=== PATIENT | male | born 1955 | race Caucasian/White ===

== ENCOUNTER 2021-04-01 13:55 | Inpatient (IN) | payer MEDICARE, OTHER ==
[~2021-04-01] VITALS: Ht 165.1 cm; Wt 74.4 kg
--- NOTE | 2021-04-01 14:15 | NUR ---
Pt brought in from [facility] for depression and involuntary admission to a psychiatric facility, noted to be calm and cooperative, A/O to self. Belongings taken from patient and noted on inventory list.
--- NOTE | 2021-04-01 14:16 | NUR ---
Dr. Daly at [facility] for [facility].
--- NOTE | 2021-04-01 15:00 | NUR ---
Patient is resting comfortably in bed with eyes closed
[2021-04-01 15:01] LABS: *BILIRUBIN,URIN NEGATIVE (NEGATIVE); *BLOOD, URINE NEGATIVE (NEGATIVE); *COLOR,URINE YELLOW (YELLOW); *KETONES,URINE NEGATIVE (NEGATIVE); *UROBILINOGEN,URINE 0.2 E.U./dl (NORMAL); LEUKOCYTE ESTERASE ,URINE TRACE (NEGATIVE); NITRITE, URINE NEGATIVE (NEGATIVE); PH,URINE 5.5 (5.0-8.0); UGLUCOSE NEGATIVE (NEGATIVE)
[2021-04-01 15:14] LABS: *CLARITY,URINE SLIGHTLY HAZY (CLEAR)
[2021-04-01 15:14] LABS: BASOPHILS # (AUTO) 0.1 K/uL (0.0-8.0); EOSINOPHILS # (AUTO) 0.2 K/uL (0.0-0.7); EOSINOPHILS % (AUTO) 1.9 % (0.0-7.0); HEMOGLOBIN 12.2 g/dL (12.5-16.3); MEAN CORPUSCULAR HEMOGLOBIN 29.6 uug (23.8-33.4); MEAN CORPUSCULAR HGB CONC 34 g/dL (32.5-36.3); MEAN CORPUSCULAR VOLUME 87.6 fL (73.0-96.2); MONOCYTES # (AUTO) 0.5 K/uL (2.0-10.0); NEUTROPHILS # (AUTO) 5.5 K/uL (1.8-8.9); NEUTROPHILS % (AUTO) 67.1 % (38.5-71.5); PLATELET COUNT (AUTO) 210 K/uL (152-348); RED BLOOD CELL COUNT(AUTO) 4.11 MIL/uL (4.06-5.63); WHITE BLOOD COUNT (AUTO) 8.2 K/uL (3.6-10.2)
[2021-04-01 15:15] LABS: RBC,URINE 0-3 /HPF (0-3)
[2021-04-01 15:16] LABS: BACTERIA,URINE FEW /HPF (NONE SEEN); SQUAMOUS EPITHELIAL CELL,UR FEW /HPF (NONE SEEN)
[2021-04-01 15:19] LABS: CARBON DIOXIDE 24 mmol/L (21-32); CHLORIDE 108 mmol/L (98-107); CREATININE 0.8 mg/dL (0.6-1.3); GLUCOSE 82 mg/dL (74-106); POTASSIUM 3.3 mmol/L (3.5-5.1); UREA NITROGEN, BLOOD 22 mg/dL (7-18)
[2021-04-01 15:24] LABS: ETHANOL < 3 MG/DL (0-0)
[2021-04-01 15:25] LABS: ALANINE AMINOTRANSFERASE 46 U/L (16-63); ALKALINE PHOSPHATASE 68 U/L (50-136); ASPARTATE AMINOTRANSFERASE 69 U/L (15-37); BILIRUBIN,DIRECT 0.1 mg/dL (0.0-0.2); BILIRUBIN,TOTAL 0.2 mg/dL (0.2-1.0); TOTAL PROTEIN, SERUM 7.1 g/dL (6.4-8.2)
[2021-04-01 15:31] LABS: ACETAMINOPHEN < 2.0 ug/mL (10-30)
[2021-04-01 15:32] LABS: THYROID STIMULATING HORMONE 2.679 mIU/mL (0.358-3.740)
[2021-04-01 15:32] LABS: *AMPHETAMINE, URINE NEGATIVE (NEGATIVE); *CANNABINOID, URINE NEGATIVE (NEGATIVE); *COCCAINE, URINE NEGATIVE (NEGATIVE); *OPIATE, URINE NEGATIVE (NEGATIVE); *PHENCYCLIDINE SCREEN,URINE NEGATIVE (NEGATIVE)
[2021-04-01] MEDS ORDERED: POTASSIUM BICARBONATE/CIT AC 25 MEQ TABLET.EFF PO ONE (15:45)
--- NOTE | 2021-04-01 16:00 | NUR ---
PATIENT WAS MEDICALLY CLEARED BY DR JOSEPH.
[2021-04-01] MEDS ORDERED: POTASSIUM BICARBONATE/CIT AC 25 MEQ TABLET.EFF ONE (16:02)
--- NOTE | 2021-04-01 17:00 | NUR ---
Patient is resting comfortably in bed with eyes closed
--- NOTE | 2021-04-01 17:30 | NUR ---
GPS: Nursing Notes: Admission Note: Patient admitted to [facility] on 5150 GD due to psychotic behavior, s/p fall, not making sense when answering questions, unable to verbalize plan for self care, during face to face assessment, patient is A/Ox1, confused, poor insight, impaired judgment, talking incoherently when questioned by staff, but cooperative with nursing care, allowed staff to shower him, unable to formulate a viable plan for self care, needs supervision with ambulation due s/p fall, continue to monitor for safety.
[2021-04-01] MEDS ORDERED: MAGNESIUM HYDROXIDE 30 ML LIQUID UDC PO PRN (18:15)
[2021-04-01] MEDS ORDERED: LORAZEPAM 0.5 MG TABLET PO PRN ×2 (18:15→22:15)
[2021-04-01] MEDS ORDERED: MAG HYDROX/AL HYDROX/SIMETH 30 ML LIQUID UDC PO PRN (18:15)
[2021-04-01] MEDS ORDERED: ACETAMINOPHEN 325 MG TABLET PO PRN (18:15)
[2021-04-01 18:57] VITALS: BP 106/60
[2021-04-01 20:00] VITALS: BP 120/63
[2021-04-01] MEDS: SULFAMETH/TRIMETH 800/160 MG TABLET PO SCH (23:42)
--- NOTE | 2021-04-02 01:36 | NUR ---
RECEIVED PATIENT IN A MICHA CHAIR IN THE HALLWAY. APPEARS CONFUSED, RAMBLING AND AT ONE POINT ATTEMPTED TO GET OUT OF THE CHAIR. HE SAID " AM GOING TO SPACE".HE HAS POOR INSIGHT AND IMPAIRED JUDGEMENT. IT WAS THE ONLY COHERENT AND CLEAR SENTENCE OUT OF HIM.HE IS HOWEVER COMPLIANT WITH HIS MEDICATIONS. SAME GIVEN AND PATIENT NOW SLEEPING. FREQUENT VISUAL CHECKS MADE ON HIM FOR SAFETY.WILL CONTINUE TO MONITOR.
--- NOTE | 2021-04-02 06:50 | NUR ---
SLEPT FOR 6;45 HOURS.
[2021-04-02 07:30] VITALS: BP 103/73
[2021-04-02 08:10] LABS: BILIRUBIN,TOTAL 0.3 mg/dL (0.2-1.0); CREATININE 0.8 mg/dL (0.6-1.3); POTASSIUM 3.6 mmol/L (3.5-5.1); TOTAL PROTEIN, SERUM 7.3 g/dL (6.4-8.2)
[2021-04-02] MEDS: SULFAMETH/TRIMETH 800/160 MG TABLET PO SCH ×2 (08:45→20:05)
[2021-04-02] MEDS: NICOTINE 14 MG/24HR PATCH TD SCH (08:45)
--- NOTE | 2021-04-02 09:49 | NUR ---
SW Initial Discharge Note: Patient appears to be homeless and will require a SNF placement or Nursing Home. Patient does not have any next of kin or family support. SW will continue to work with patient and MD to ensure a safe and proper discharge plan.
--- NOTE | 2021-04-02 09:49 | NUR ---
Firearms Report: Political Scientist completed and submitted a [employer] firearms report for 5150 grave disability certifications. A copy of report has been placed in patient chart.
--- NOTE | 2021-04-02 10:24 | NUR ---
WOUND CARE CONSULT: PT PRESENTS WITH DRY ABRASIONS TO BILATERAL KNEES, CRUSTED WOUND TO RT ELBOW AND OPEN WOUND TO LEFT TOP OF EAR, ALL PRESENT ON ADMISSION. RECOMMEND SURGICAL CONSULT. DR FARNAZ LEYVA NOTIFIED OF CONSULT REQUEST. RECOMMENDATIONS MADE FOR SKIN PROTECTION AND WOUND CARE. DISCUSSED WITH NURSING STAFF. PT IS AMBULATORY AND CONTINENT. MD IN AGREEMENT WITH PLAN OF CARE. Addendum: 04/03/21 at 0838 by HOMER FERRER RN CORRECTION TO ABOVE NOTE: SHOULD READ CRUSTED LEFT ELBOW WOUND.
[2021-04-02] MEDS ORDERED: LORAZEPAM 1 MG TABLET PO PRN (10:45)
[2021-04-02] MEDS: risperiDONE 0.5 MG TABLET PO SCH ×3 (11:42→16:25)
[2021-04-02] MEDS: BACITRACIN/POLYMYXIN B OINT 15 GM TUBE TOP SCH (11:43)
[2021-04-02 15:27] VITALS: BP 114/64
[2021-04-02] MEDS: BENZTROPINE MESYLATE 0.5 MG TABLET PO SCH (16:25)
[2021-04-02 16:39] LABS: BILIRUBIN,DIRECT 0.1 mg/dL (0.0-0.2); BILIRUBIN,TOTAL 0.4 mg/dL (0.2-1.0); TOTAL PROTEIN, SERUM 7.5 g/dL (6.4-8.2)
[2021-04-02 20:21] VITALS: BP 116/62
[2021-04-02] MEDS ORDERED: risperiDONE 0.5 MG TABLET PO SCH (21:00)
[2021-04-02] MEDS: TEMAZEPAM 7.5 MG CAPSULE PO PRN (23:21)
--- NOTE | 2021-04-03 05:59 | NUR ---
GPS: Pt.slept for 6.30 last night. Remains confused,non-sensical but re-directable. Fall precautions observed. Wound care to left elbow done as ordered. Needs attended. No adverse reactions noted from atb therapy for uti. Fluids semaj.well.
--- NOTE | 2021-04-03 07:00 | NUR ---
Patient report received from shift nurse manager. Patient resting in bed. Alert and oriented x 1 to person. No reports of pain or shortness of breath at this time. Patient has abrasions on the knees and elbow, as well as the left ear. Patient is calm and cooperative. Bed in low and locked position. Safety precautions in place. Will continue to monitor.
[2021-04-03 07:30] VITALS: BP 133/70
[2021-04-03] MEDS: BENZTROPINE MESYLATE 0.5 MG TABLET PO SCH ×2 (09:43→16:58)
[2021-04-03] MEDS: risperiDONE 0.5 MG TABLET PO SCH ×3 (09:43→16:58)
[2021-04-03] MEDS: SULFAMETH/TRIMETH 800/160 MG TABLET PO SCH ×2 (09:43→20:04)
[2021-04-03] MEDS: BACITRACIN/POLYMYXIN B OINT 15 GM TUBE TOP SCH (09:43)
[2021-04-03] MEDS: NICOTINE 14 MG/24HR PATCH TD SCH (09:43)
[2021-04-03 16:47] VITALS: BP 114/72
--- NOTE | 2021-04-03 17:50 | NUR ---
Patient was less anxious throughout the day. She has been compliant with her medications. Calm and cooperative. Patient is now on voluntary status. Denies SI and HI at this time. Patient interactive with group. No reports of pain or shortness of breath at this time. Pt remains confused. Addendum: 04/03/21 at 1756 by IQRA HADDAD RN Charted on wrong patient. please ignore.
--- NOTE | 2021-04-03 17:57 | NUR ---
Patient calm and cooperative throughout the day. Compliant with medications. Patient is now on a 14 day hold. Interactive with group. Wound care provided for abrasions on the knees and elbow. Alert and oriented x [address]. No reports of suicidal ideations or homicidal ideations. Patient endorses auditory hallucinations. Stated the voices told him that "Everything will be okay."
[2021-04-03] MEDS: risperiDONE 1 MG TABLET PO SCH (20:04)
[2021-04-03 20:29] VITALS: BP 112/57
[2021-04-03] MEDS ORDERED: risperiDONE 0.5 MG TABLET PO SCH (21:00)
[2021-04-03] MEDS: TEMAZEPAM 7.5 MG CAPSULE PO PRN (21:57)
--- NOTE | 2021-04-04 06:42 | NUR ---
GPS: Pt.slept for 6.30 last night. Currently in the TV room watching tv. Remains confused but listens to re-direction. Safe environment provided. Will continue to monitor.
[2021-04-04 07:30] VITALS: BP 127/56
[2021-04-04] MEDS: BENZTROPINE MESYLATE 0.5 MG TABLET PO SCH ×2 (08:46→16:22)
[2021-04-04] MEDS: SULFAMETH/TRIMETH 800/160 MG TABLET PO SCH ×2 (08:46→20:09)
[2021-04-04] MEDS: risperiDONE 0.5 MG TABLET PO SCH ×3 (08:46→16:22)
[2021-04-04] MEDS: NICOTINE 14 MG/24HR PATCH TD SCH (08:47)
[2021-04-04] MEDS: BACITRACIN/POLYMYXIN B OINT 15 GM TUBE TOP SCH (08:47)
--- NOTE | 2021-04-04 09:56 | NUR ---
[facility] SN[facility] Referral: M[facility] faxed patient's referral packet to [facility] attention to Shahrzad ([phone]) and [facility] attention to Annie ([phone]) for review and possible placement. Addendum: 04/05/21 at 1000 by BORIS BROWN Patient is accepted at [facility] for placement.
[2021-04-04 17:10] VITALS: BP 104/50
[2021-04-04 20:01] VITALS: BP 128/65
[2021-04-04] MEDS: risperiDONE 1 MG TABLET PO SCH (20:09)
[2021-04-04] MEDS: TEMAZEPAM 7.5 MG CAPSULE PO PRN (22:28)
--- NOTE | 2021-04-05 06:41 | NUR ---
GPS: Currently in the dining room area watching TV. Slept 5.30 last night. Remains confused,disorganized and non-sensical. Listens to re-direction from staff. Safe environment provided. Fluids encouraged. No adverse reactions noted from atb.
[2021-04-05 07:30] VITALS: BP 123/77
[2021-04-05] MEDS: risperiDONE 0.5 MG TABLET PO SCH ×3 (08:33→16:03)
[2021-04-05] MEDS: NICOTINE 14 MG/24HR PATCH TD SCH (08:33)
[2021-04-05] MEDS: BENZTROPINE MESYLATE 0.5 MG TABLET PO SCH ×2 (08:33→16:02)
[2021-04-05] MEDS: SULFAMETH/TRIMETH 800/160 MG TABLET PO SCH ×2 (08:33→20:05)
[2021-04-05] MEDS: BACITRACIN/POLYMYXIN B OINT 15 GM TUBE TOP SCH (08:34)
--- NOTE | 2021-04-05 11:35 | NUR ---
[facility] Hearing: Patient had 5250 probable cause hearing today and it was upheld for grave disability.
[2021-04-05 16:08] VITALS: BP 118/67
--- NOTE | 2021-04-05 18:12 | NUR ---
received patient AOx1-2, patient appears disorganized, responding to internal stimuli, acting bizarrely pre occupied on doing artworks , patient on monitoring [id number] for safety, been compliant with medication, milieu therapy and care, assisted with his ADL, denies SI and HI, denies AH/VH at this time, no sign of distress
[2021-04-05 20:05] VITALS: BP 126/55
[2021-04-05] MEDS: risperiDONE 1 MG TABLET PO SCH (20:05)
[2021-04-05] MEDS: TEMAZEPAM 7.5 MG CAPSULE PO PRN (23:28)
--- NOTE | 2021-04-06 05:37 | NUR ---
Patient spent most of the evening in the day room , sitting with his peers but not interacting. His speech is unintelligible and garbled. This brief writer tried many times to figure out what the patient was saying. The few times his speech was clear, the patient was speaking nonsensical and delusional. Also noted ,that this patient is calm and does not show any type of behavioral issues. Sleep hours were 5.00 last night. A sleeping pill was provided. Continuing to asses for the patients needs, and monitor for safety.
[2021-04-06] MEDS: risperiDONE 0.5 MG TABLET PO SCH ×2 (08:02→16:00)
[2021-04-06] MEDS: NICOTINE 14 MG/24HR PATCH TD SCH (08:02)
[2021-04-06] MEDS: BACITRACIN/POLYMYXIN B OINT 15 GM TUBE TOP SCH (08:02)
[2021-04-06] MEDS: BENZTROPINE MESYLATE 0.5 MG TABLET PO SCH ×2 (08:02→16:00)
[2021-04-06 08:27] VITALS: BP 119/65
[2021-04-06 16:13] VITALS: BP 101/60
[2021-04-06 20:00] VITALS: BP 130/52
[2021-04-06] MEDS: risperiDONE 1 MG TABLET PO SCH (20:07)
[2021-04-07 07:30] VITALS: BP 121/69
[2021-04-07] MEDS: risperiDONE 0.5 MG TABLET PO SCH ×2 (08:38→16:32)
[2021-04-07] MEDS: NICOTINE 14 MG/24HR PATCH TD SCH (08:38)
[2021-04-07] MEDS: BENZTROPINE MESYLATE 0.5 MG TABLET PO SCH ×2 (08:39→16:32)
[2021-04-07] MEDS: BACITRACIN/POLYMYXIN B OINT 15 GM TUBE TOP SCH (08:39)
[2021-04-07] MEDS ORDERED: PNEUMOCOCCAL 23-VAL P-SAC VAC 0.5 ML VIAL IM ONE (14:30)
[2021-04-07 16:00] VITALS: BP 112/66
[2021-04-07 20:00] VITALS: BP 116/69
[2021-04-07] MEDS: risperiDONE 1 MG TABLET PO SCH (20:24)
[2021-04-07] MEDS: TEMAZEPAM 7.5 MG CAPSULE PO PRN (22:09)
--- NOTE | 2021-04-08 04:47 | NUR ---
Patient was seen masturbating in the day room last night in front of a couple other patients. This life insurance underwriter redirected patient to his room. This patient was easily redirectable, and stopped right away. It is very hard to communicate anything meaningful with the patient, due to his garbled, rambling, delusional communication abilities. There were no more incidences of exhibitionism during the night after that. Staff is monitoring patient closely for hypersexual behaviors. For the most part this patient is calm and cooperative.
[2021-04-08 07:30] VITALS: BP 118/67
[2021-04-08] MEDS: risperiDONE 0.5 MG TABLET PO SCH ×2 (08:39→17:55)
[2021-04-08] MEDS: NICOTINE 14 MG/24HR PATCH TD SCH (08:39)
[2021-04-08] MEDS: BENZTROPINE MESYLATE 0.5 MG TABLET PO SCH (08:39)
[2021-04-08] MEDS: BACITRACIN/POLYMYXIN B OINT 15 GM TUBE TOP SCH (08:40)
[2021-04-08 11:43] LABS: BASOPHILS # (AUTO) 0.1 K/uL (0.0-8.0); BASOPHILS % (AUTO) 0.8 % (0.0-2.0); EOSINOPHILS # (AUTO) 0.2 K/uL (0.0-0.7); EOSINOPHILS % (AUTO) 2.4 % (0.0-7.0); HEMATOCRIT 35.8 % (36.7-47.1); HEMOGLOBIN 12.2 g/dL (12.5-16.3); LYMPHOCYTES # (AUTO) 1.6 K/uL (20.0-40.0); LYMPHOCYTES % (AUTO) 22.4 % (20.5-51.5); MEAN CORPUSCULAR HEMOGLOBIN 29.7 uug (23.8-33.4); MEAN CORPUSCULAR HGB CONC 34 g/dL (32.5-36.3); MEAN CORPUSCULAR VOLUME 87.4 fL (73.0-96.2); MONOCYTES # (AUTO) 0.6 K/uL (2.0-10.0); MONOCYTES % (AUTO) 7.6 % (0.0-11.0); NEUTROPHILS # (AUTO) 4.9 K/uL (1.8-8.9); NEUTROPHILS % (AUTO) 66.8 % (38.5-71.5); PLATELET COUNT (AUTO) 210 K/uL (152-348); WHITE BLOOD COUNT (AUTO) 7.3 K/uL (3.6-10.2)
[2021-04-08 11:55] LABS: BILIRUBIN,TOTAL 0.2 mg/dL (0.2-1.0); CREATININE 0.9 mg/dL (0.6-1.3); POTASSIUM 3.8 mmol/L (3.5-5.1)
[2021-04-08 15:28] VITALS: BP 118/58
[2021-04-08] MEDS ORDERED: BENZTROPINE MESYLATE 0.5 MG TABLET PO SCH (17:00)
[2021-04-08] MEDS: BENZTROPINE MESYLATE 1 MG TABLET PO SCH (17:55)
[2021-04-08] MEDS: risperiDONE 2 MG TABLET PO SCH (20:03)
[2021-04-08 20:32] VITALS: BP 116/56
[2021-04-08] MEDS ORDERED: risperiDONE 1 MG TABLET PO SCH (21:00)
[2021-04-09 07:30] VITALS: BP 107/70
[2021-04-09] MEDS: NICOTINE 14 MG/24HR PATCH TD SCH (08:53)
[2021-04-09] MEDS: BENZTROPINE MESYLATE 1 MG TABLET PO SCH ×3 (08:53→20:00)
[2021-04-09] MEDS: risperiDONE 0.5 MG TABLET PO SCH ×2 (08:53→17:18)
[2021-04-09] MEDS: BACITRACIN/POLYMYXIN B OINT 15 GM TUBE TOP SCH (08:54)
[2021-04-09 15:04] VITALS: BP 107/58
[2021-04-09 20:15] VITALS: BP 130/63
[2021-04-09] MEDS: risperiDONE 2 MG TABLET PO SCH (20:31)
--- NOTE | 2021-04-09 23:42 | NUR ---
RECEIVED PATIENT IN THE ACTIVITY ROOM.NOTED CONFUSED,FURIOUSLY COLORING A PAINTING AND WOULD NOT RAISE HIS HEAD TILL HE WAS READY TO ENGAGE.HE IS DISORGANIZED, SPEECH GABLED AND UNINTELLIGIBLE AND HE IS DISORIENTED WITH POOR JUDGEMENT AND INSIGHT. HE IS COMPLIANT WITH MEDICATION. HE DID NOT DISPLAY ANY HYPER SEXUAL ACTIVITY AT THIS TIME. CHECKS MADE ON HIM FOR SAFETY. WILL CONTINUE TO MONITOR.
--- NOTE | 2021-04-10 06:29 | NUR ---
SLEPT FOR 7:15 HOURS.
[2021-04-10 07:30] VITALS: BP 111/68
[2021-04-10] MEDS: BACITRACIN/POLYMYXIN B OINT 15 GM TUBE TOP SCH (08:42)
[2021-04-10] MEDS: NICOTINE 14 MG/24HR PATCH TD SCH (08:42)
[2021-04-10] MEDS: risperiDONE 0.5 MG TABLET PO SCH ×2 (08:42→16:59)
[2021-04-10] MEDS: BENZTROPINE MESYLATE 1 MG TABLET PO SCH ×3 (08:43→16:59)
[2021-04-10 16:02] VITALS: BP_SYST 111; BP_SYST 119; BP_DIAS 35; BP_DIAS 70
[2021-04-10 20:00] VITALS: BP 114/61
[2021-04-10] MEDS: risperiDONE 2 MG TABLET PO SCH (20:06)
--- NOTE | 2021-04-10 21:50 | NUR ---
Received patient in his room, isolative, preoccupied writing something on a piece of behavior. med compliant, bizzare, poor insight and poor judgment. Patient will remain in a psych facility for further evaluation and treatment.
[2021-04-11] MEDS: TEMAZEPAM 7.5 MG CAPSULE PO PRN ×2 (00:42→20:03)
[2021-04-11 07:30] VITALS: BP 142/67
[2021-04-11] MEDS: BENZTROPINE MESYLATE 1 MG TABLET PO SCH ×3 (08:44→17:56)
[2021-04-11] MEDS: NICOTINE 14 MG/24HR PATCH TD SCH (08:45)
[2021-04-11] MEDS ORDERED: risperiDONE 1 MG TABLET PO SCH (09:00)
[2021-04-11] MEDS ORDERED: risperiDONE 0.5 MG TABLET PO SCH (09:00)
[2021-04-11] MEDS: BACITRACIN/POLYMYXIN B OINT 15 GM TUBE TOP SCH (12:43)
[2021-04-11 16:00] VITALS: BP 138/73
--- NOTE | 2021-04-11 17:00 | NUR ---
Gps/Terrazzo Tile Setter- Wanders around, redirectable, compliant with his routine am meds, needed prompting and verbal cueing in doing his tasks, mumbles , encouraged to talk louder. Patient likes to write , kept scribbling . Needed assist with am care and hygiene
[2021-04-11] MEDS: risperiDONE 1 MG TABLET PO SCH (17:56)
[2021-04-11 20:01] VITALS: BP 119/63
[2021-04-11] MEDS: risperiDONE 2 MG TABLET PO SCH (20:03)
[2021-04-12 07:30] VITALS: BP 150/59
[2021-04-12] MEDS: risperiDONE 1 MG TABLET PO SCH (08:22)
[2021-04-12] MEDS: BACITRACIN/POLYMYXIN B OINT 15 GM TUBE TOP SCH (08:22)
[2021-04-12] MEDS: NICOTINE 14 MG/24HR PATCH TD SCH (08:22)
[2021-04-12] MEDS: BENZTROPINE MESYLATE 1 MG TABLET PO SCH ×2 (08:22→12:33)
--- NOTE | 2021-04-12 08:40 | NUR ---
SW Discharge Note: Patient [facility] be [facility] [address] [facility] [address] ([phone]). Patient will be provided with ambulance transportation today at 1:00pm. Spoke with vincent Valencia at the facility and Chinedu, shutdown coordinator who stated they are ready to accept the patient today. Patient is aware and agreeable with discharge plans and presents with appropriate mood and congruent affect. Patient is alert and oriented x3, is unable to plan for self-care, however, is willing to received care provided for him at [facility]. Patient denies any suicidal or homicidal ideation. Patient will follow-up at the facility with Psychiatrist Dr. Mckenzie and Chimney Builder Helper Dr. Montes De Oca. Patient does not have any supportive contacts at this time. Patient signed the homeless waiver upon discharge and a copy was placed in the chart. Homeless resources were provided and include [address] information line for shelters and homeless resources. A copy of all resources given to patient was also placed in the chart.
--- NOTE | 2021-04-12 10:19 | NUR ---
Gps/Executive Vice President- Called [facility], report was given to [employer] Chemist , estimated time of turkey picker by ambulance at 1200.
--- NOTE | 2021-04-12 12:00 | NUR ---
Gps/Supervisor Drilling And Shooting- Granulation to left knee abrassion, (Scabs) , left elbow and left ear , sites cleansed with NS bacitracin ana maria. applied., left elbow w/ boarder dressing left knee and left ear BRICK WHEELER.
--- NOTE | 2021-04-12 12:57 | NUR ---
Gps/Accounting Practice Manager- Discharged to [facility] via ambulance., in good spirit, no complaints noted, all belongings given back to patient. In no sign of any distress.
== END 2021-04-12 13:00 | DRG 876 ==
LOC: ER 13:55 → GPS 17:12
PROVIDERS: ADMIT Psychiatry & Neurology Psychosomatic Medicine; ATTEND Internal Medicine
PROC: 0JBH0ZZ Excision of Left Lower Arm Subcutaneous Tissue and Fascia, Open Approach (ICD-10-PCS; principal; 2021-04-02)
DX: F29 Unspecified psychosis not due to a substance or known physiological condition (principal); F01.50 Vascular dementia, unspecified severity, without behavioral disturbance, psychotic disturbance, mood disturbance, and anxiety; N17.0 Acute kidney failure with tubular necrosis; Z59.0 Homelessness; S51.002A Unspecified open wound of left elbow, initial encounter; S01.302A Unspecified open wound of left ear, initial encounter; E87.6 Hypokalemia; F17.210 Nicotine dependence, cigarettes, uncomplicated; F31.9 Bipolar disorder, unspecified; F25.9 Schizoaffective disorder, unspecified; X58.XXXA Exposure to other specified factors, initial encounter; Y93.9 Activity, unspecified; Y92.89 Other specified places as the place of occurrence of the external cause; D64.9 Anemia, unspecified; R73.03 Prediabetes; Z74.09 Other reduced mobility; E66.9 Obesity, unspecified; Z68.27 Body mass index [BMI] 27.0-27.9, adult; S80.212A Abrasion, left knee, initial encounter; S80.211A Abrasion, right knee, initial encounter; Z20.822 Contact with and (suspected) exposure to COVID-19; Z71.6 Tobacco abuse counseling; Z87.440 Personal history of urinary (tract) infections; Z91.81 History of falling
CPT/HCPCS: 36415; 70030-TC; 70450; 71045; 84443; 85025; 87086; 90732; 93005; A4663; G0480